=== PATIENT | male | born 1955 | race Caucasian/White ===

== ENCOUNTER 2018-06-22 17:44 | Emergency (ER) | payer OTHER ==
[~2018-06-22] VITALS: Ht 180.3 cm; Wt 74.8 kg
[~2018-06-22 17:44] MED LIST: AMLO5TAB7 PO; FAMO20TA8 PO; TAMS-3 PO
--- NOTE | 2018-06-22 18:29 | NUR ---
63 YEARS OLD MALE WALKING TO ER C/O BACK PAIN NO INJURY, ER MD AT BEDSIDE TO ASSESS PATIENT.
[2018-06-22] MEDS ORDERED: ONDANSETRON ODT 4 MG TAB.RAPDIS ONE (18:40)
[2018-06-22] MEDS ORDERED: HYDROCODONE/APAP 10-325 MG TABLET ONE (18:40)
[2018-06-22] MEDS ORDERED: CYCLOBENZAPRINE HCL 10 MG TABLET ONE (18:40)
[2018-06-22] MEDS ORDERED: CYCLOBENZAPRINE HCL 10 MG TABLET PO ONE (18:45)
[2018-06-22] MEDS ORDERED: ONDANSETRON ODT 4 MG TAB.RAPDIS SL ONE (18:45)
[2018-06-22] MEDS ORDERED: HYDROCODONE/APAP 10-325 MG TABLET PO ONE (18:45)
[2018-06-22 18:48] VITALS: BP 128/70
--- NOTE | 2018-06-22 18:48 | NUR ---
PATIENT CONDITION IMPROVED TOLERATED PO MED WELL D/C HOME WITH INSTRUCTIONS AFTER CARE REVIEWED UNDERSTOOD LEFT ER ALERT, ORIENTED X4 AMBULATORY WITH STEADY GAIT.
== END 2018-06-22 18:54 | disposition home or self-care (01) ==
LOC: ER 17:46
DX: M54.5 Low back pain (principal); Z71.6 Tobacco abuse counseling; I10 Essential (primary) hypertension; F17.290 Nicotine dependence, other tobacco product, uncomplicated; Z79.899 Other long term (current) drug therapy
CPT/HCPCS: A4663; Q0162